=== PATIENT | female | born 1975 | race Caucasian/White ===

== ENCOUNTER 2017-11-06 20:23 | Emergency (ER) | payer SELFPAY ==
--- NOTE | 2017-11-06 20:47 | UC ---
Dental HPI - HPI Summary HPI Summary: Pt presents with right lower dental pain for the past 3-4 days. She tells me that she knows she has fractured teeth and has had dental abscesses in the past - but has been "putting off" seeing a dentist due to insurance reasons. She is currently able to eat and drink with mild to moderate pain. Denies fever, chills , ST, SOB, chest pain or palpitations, abdominal pain, N/V/D/C - History of Current Complaint Chief Complaint: UCDentalProblem Stated Complaint: TOOTH PAIN Time Seen by Provider: 11/06/17 20:47 Hx Obtained From: Patient Onset/Duration: Gradual Onset Severity: Moderate Pain Intensity: 7 Pain Scale Used: 0-10 Numeric - Allergies/Home Medications Allergies/Adverse Reactions: Allergies Allergy/AdvReac Type Severity Reaction Status Date / Time Ciprofloxacin [From Cipro] Allergy Hives Verified 11/06/17 20:35 Penicillins Allergy Unknown Verified 11/06/17 20:35 Reaction Details Vancomycin Allergy Hives Verified 11/06/17 20:35 Home Medications: Home Medications Acetaminophen [Tylenol] 1,000 mg PO ONCE 11/06/17 [History Confirmed 11/06/17] Aspirin TAB* [Aspirin 325 MG TAB*] 1 tab PO ONCE 11/06/17 [History Confirmed ] PMH/Surg Hx/FS Hx/Imm Hx Previously Healthy: Yes - Surgical History Surgical History: Yes Surgery Procedure, Year, and Place: Kidney. Hyster. Back - Family History Known Family History: Positive: Unknown - Social History Occupation: Employed Full-time Lives: Alone Alcohol Use: None Substance Use Type: None Smoking Status (MU): Light Every Day Tobacco Smoker Cessation Counseling: Counseled 3+Min - 10 Min Review of Systems Constitutional: Negative ENT: Dental Pain Respiratory: Negative Cardiovascular: Negative Gastrointestinal: Negative All Other Systems Reviewed And Are Negative: Yes Physical Exam Triage Information Reviewed: Yes Appearance: Well-Appearing, Well-Nourished Vital Signs: Initial Vital Signs Temp 98.3 F 11/06/17 20:32 Pulse 74 11/06/17 20:32 Resp 12 11/06/17 20:32 Pulse Ox 100 11/06/17 20:32 Vital Signs Reviewed: Yes ENT: Positive: Hearing grossly normal, Pharynx normal, TMs normal, Dental tenderness, Uvula midline. Negative: Pharyngeal erythema, Nasal congestion, Nasal drainage, TM bulging, TM dull, TM red, Tonsillar swelling, Tonsillar exudate, Sinus tenderness Dental: Positive: Percussion Tenderness @ - Tooth #30, 29, and 28., Gross Decay/ Caries @ - Throughout, Dental Fracture @ - Tooth #29 and 28, Cellulitis @ - Tooth #30. Negative: Abscess @, Cervical Lymphadenopathy, Bleeding Neck: Positive: Supple, Nontender, No Lymphadenopathy Respiratory: Positive: Chest non-tender, Lungs clear, Normal breath sounds, No respiratory distress Cardiovascular: Positive: RRR, No Murmur, Pulses Normal Neurological: Positive: Alert Psychological: Positive: Age Appropriate Behavior Skin: Negative: rashes Dental Complaint Course/Dx - Course Course Of Treatment: Dental abscess likely tooth #30. Clindamycin, lidocaine viscous, and advised to f/u with dentist BETY. - Differential Dx/Diagnosis Differential Diagnosis/Dx: Dental Abscess, Fractured Tooth, Odontogenic Pain Provider Diagnoses: Dental abscess tooth #30. Fractured tooth #29 and 28 Discharge - Discharge Plan Condition: Stable Disposition: HOME Prescriptions: Clindamycin Cap(NF) [Clindamycin Cap 300 mg Cap(NF)] 300 mg PO TID #21 cap Lidocaine 2% VISCOUS* [Xylocaine 2% Viscous*] 15 ml SWISH SPIT Q6H PRN #480 ml PRN Reason: Pain Patient Education Materials: Dental Abscess (ED) Referrals: No Primary Care Phys,NOPCP [Primary Care Provider] - Additional Instructions: If you develop a fever, SOB, chest pain, new or worsening symptoms - please call your PCP or go to the ED. Please schedule a follow up appointment with your dentist as soon as possible.
[2017-11-06] MEDS ORDERED: Clindamycin CAP* 150 MG PO ONE (21:00)
== END 2017-11-06 21:10 | disposition home or self-care (01) ==
LOC: UCEAST 20:23
DX: S02.5XXA Fracture of tooth (traumatic), initial encounter for closed fracture (principal); X58.XXXA Exposure to other specified factors, initial encounter; Y93.9 Activity, unspecified; Y92.9 Unspecified place or not applicable; Y99.9 Unspecified external cause status; Z72.0 Tobacco use; K04.7 Periapical abscess without sinus
CPT/HCPCS: 99202; A9270-GY; G0463